=== PATIENT | male | born 1965 | race Caucasian/White ===

== ENCOUNTER 2017-04-15 17:21 | Emergency (ER) | payer SELFPAY ==
[2017-04-15 17:23] VITALS: BP 129/81; PULSE 84; RESP 12; TEMP 97.7; O2SAT 99
[2017-04-15] MEDS ORDERED: AMIO0.1T PO (18:32)
[2017-04-15] MEDS ORDERED: HYDR12.57 PO (18:32)
[2017-04-15] MEDS ORDERED: LISI40TA PO (18:32)
[2017-04-15] MEDS ORDERED: METF1000 PO (18:37)
[2017-04-15] MEDS ORDERED: METO25TA3 PO (18:37)
[2017-04-15] MEDS ORDERED: CLON0.5T PO (18:37)
[2017-04-15] MEDS ORDERED: TRAM50TA PO (18:37)
[2017-04-15] MEDS ORDERED: APIX2.5T PO (18:37)
[2017-04-15] MEDS ORDERED: GABA100C4 PO (18:37)
[2017-04-15] MEDS ORDERED: MELO7.5T27 PO (18:38)
[2017-04-15] MEDS ORDERED: BACT800T5 PO (19:15)
--- NOTE | 2017-04-15 19:19 | PD ---
HPI Chief Complaint: Medical Clearance Time Seen by Provider: 19:15 Travel History International Travel<30 days: No Contact w/Intl Traveler<30days: No Traveled to known affect area: No History of Present Illness HPI 51-year-old white male presents to emergency department with complains of a persistent infection in his right lower calf. He states that 2 weeks ago was seen by his doctor and put on 10 days and clindamycin. His mouth is medicines now for the past 4 days. He is noticing increasing redness. He is concerned because he has diabetes and he'll slowly. He had a subjective fever and chills earlier today. Positive headache. No ear pain, sore throat, cough, congestion , nausea, vomiting, bowel pain or urinary symptoms. History of skin infections in the past. [facility] Past Medical History Narrative Medical A. fib, hypertension, diabetes Atrial Fibrillation: Yes Diabetes: Yes Patient Takes Glucophage: Yes Hypertension: Yes Tetanus Vaccination: < 5 Years ?: Not Social History Alcohol Use: No Tobacco Use: No Substance Use: No Allergies-Medications (Allergen,Severity, Reaction): Coded Allergies: No Known Allergies (Unverified , 04/15/17) Reported Meds & Prescriptions Reported Meds & Active Scripts Active Bactrim DS (Sulfamethoxazole-Trimethoprim) 800-160 Mg Tab 1 Tab PO BID Reported Meloxicam 7.5 Mg Tab Unknown Dose PO DAILY Eliquis (Apixaban) 2.5 Mg Tab Unknown Dose PO BID Clonazepam 0.5 Mg Tab Unknown Dose PO DAILY Metoprolol Tartrate 25 Mg Tab Unknown Dose PO DAILY Tramadol (Tramadol HCl) 50 Mg Tab Unknown Dose PO BID PRN Metformin (Metformin HCl) 1,000 Mg Tab Unknown Dose PO DAILY Gabapentin 100 Mg Cap Unknown Dose PO BID Amiodarone (Amiodarone HCl) 100 Mg Tab Unknown Dose PO DAILY Hydrochlorothiazide 12.5 Mg Cap Unknown Dose PO DAILY Lisinopril 40 Mg Tab 40 Mg PO DAILY Review of Systems Except as stated in HPI: all other systems reviewed are Neg Physical Exam Narrative GENERAL: Well-developed, well-nourished in no acute distress. Nontoxic appearing. HEAD: Normocephalic, atraumatic. EYES: Pupils equal round and reactive. Extraocular motions intact. No scleral icterus. No injection or drainage. ENT: TMs clear without erythema. The external auditory canals clear. Nose: clear . Posterior pharynx is pink and moist. No tonsillar edema or exudate. Uvula midline. Airway patent. NECK: Trachea midline.Supple, nontender, moves head freely. No central bony tenderness or spasm. CARDIOVASCULAR: Irregular with a controlled rate without murmurs, gallops, or rubs. RESPIRATORY: Clear to auscultation. Breath sounds equal bilaterally. No wheezes , rales, or rhonchi. GASTROINTESTINAL: Abdomen soft, non-tender, nondistended. No hepato-splenomegaly , or palpable masses. No guarding. EXTREMITIES: No clubbing, cyanosis, or edema. No joint tenderness, effusion, or edema noted. There is a 1.5 x 1.5 cm area of erythema to the right lower leg. No fluctuance or pointing. Some small central skin breakdown. BACK: Nontender without deformity or crepitance. No flank tenderness. Data Data Last Documented VS Vital Signs Date Time Temp Pulse Resp B/P (MAP) Pulse Ox O2 Delivery O2 Flow Rate FiO2 04/15/17 17:23 97.7 84 12 129/81 (97) 99 Orders Orders Sulfamet-Trimeth Ds 800-160 Mg (Bactrim (04/15/17 19:30) Ed Discharge Order (04/15/17 19:16) MDM Medical Decision Making Medical Screen Exam Complete: Yes Emergency Medical Condition: Yes Medical Record Reviewed: Yes Differential Diagnosis MDM: High Differential diagnoses: Abscess, folliculitis, cellulitis, lymphangitis, abrasion, contact dermatitis Narrative Course Patient is given Bactrim DS. This is superficial cellulitis Diagnosis Primary Impression: sUPERFICIAL CELLULITIS Patient Instructions: General Instructions Additional Instructions: Rest. Elevation. keep clean and dry. Warm compresses Daily wound care with soap, water and Neosporin. Bactrim DS Follow-up with a primary care doctor in one week. Return to the ER for any problems. Med/Other Pt SpecificInfo: Prescription(s) given Scripts Sulfamethoxazole-Trimethoprim (Bactrim DS) 800-160 Mg Tab 1 TAB PO BID for Infection, #14 TAB 0 Refills Prov: Rachael Escobedo DO 04/15/17 Disposition: 01 DISCHARGE HOME Condition: Stable Fady Riley Apr 15, 2017 19:19
[2017-04-15] MEDS ORDERED: SULFAMETHOXAZOLE-TRIMETHOPRIM DS 800-160 MG TAB PO ONE (19:30)
== END 2017-04-15 19:37 | disposition home or self-care (01) ==
LOC: EDSEX 17:21 → NEPK 17:21
DX: L03.90 Cellulitis, unspecified (principal); E11.9 Type 2 diabetes mellitus without complications; I10 Essential (primary) hypertension; I48.91 Unspecified atrial fibrillation; Z79.01 Long term (current) use of anticoagulants; Z79.84 Long term (current) use of oral hypoglycemic drugs
CPT/HCPCS: 99283

== ENCOUNTER 2017-06-19 15:49 | Emergency (ER) | payer SELFPAY ==
[~2017-06-19] VITALS: Ht 188 cm; Wt 114.0 kg
[~2017-06-19 15:49] MED LIST: AMIO0.1T PO; APIX2.5T PO; BACT800T5 PO; CLON0.5T PO; GABA100C4 PO; HYDR12.57 PO; LISI40TA PO; MELO7.5T27 PO; METF1000 PO; METO25TA3 PO; TRAM50TA PO
[2017-06-19 16:01] VITALS: BP 155/75; PULSE 72; RESP 18; TEMP 97.8; O2SAT 98
--- NOTE | 2017-06-19 17:50 | PD ---
HPI Chief Complaint: Skin Problem Time Seen by Provider: 17:17 Travel History International Travel<30 days: No Contact w/Intl Traveler<30days: No Traveled to known affect area: No History of Present Illness HPI 52-year-old male presents to the emergency room for evaluation of right leg redness, swelling, and pain. States 2 weeks ago, he hit his leg against the wall and had a large bruise and bump that has decreased over time. However, he states the same area became red with increased warmth over the past couple days. He denies objective fevers but reports chills and sweats. He has history of diabetic neuropathy and is on Eliquis. PFSH Past Medical History Atrial Fibrillation: Yes Cancer: Yes (TESTICULAR) Diabetes: Yes Patient Takes Glucophage: Yes Hypertension: Yes Influenza Vaccination: No Past Surgical History Other Surgery: Yes (1 TESTICLE REMOVED) Social History Alcohol Use: No Tobacco Use: No Substance Use: No Allergies-Medications (Allergen,Severity, Reaction): Coded Allergies: No Known Allergies (Unverified , 06/19/17) Reported Meds & Prescriptions Reported Meds & Active Scripts Active Clindamycin (Clindamycin HCl) 300 Mg Cap 300 Mg PO Q8HR 10 Days Bactrim DS (Sulfamethoxazole-Trimethoprim) 800-160 Mg Tab 1 Tab PO BID Reported Meloxicam 7.5 Mg Tab Unknown Dose PO DAILY Eliquis (Apixaban) 2.5 Mg Tab Unknown Dose PO BID Clonazepam 0.5 Mg Tab Unknown Dose PO DAILY Metoprolol Tartrate 25 Mg Tab Unknown Dose PO DAILY Tramadol (Tramadol HCl) 50 Mg Tab Unknown Dose PO BID PRN Metformin (Metformin HCl) 1,000 Mg Tab Unknown Dose PO DAILY Gabapentin 100 Mg Cap Unknown Dose PO BID Amiodarone (Amiodarone HCl) 100 Mg Tab Unknown Dose PO DAILY Hydrochlorothiazide 12.5 Mg Cap Unknown Dose PO DAILY Lisinopril 40 Mg Tab 40 Mg PO DAILY Review of Systems Except as stated in HPI: all other systems reviewed are Neg Physical Exam Narrative GENERAL: Well-nourished, well-developed male in no acute distress. Afebrile. Ambulatory. SKIN: Focused skin assessment warm/dry. There is a 5 cm area of erythema with a mild fluctuant area underneath. No lymphangitis. HEAD: Normocephalic. EYES: No scleral icterus. No injection or drainage. NECK: Supple, trachea midline. No JVD or lymphadenopathy. CARDIOVASCULAR: Regular rate and rhythm without murmurs, gallops, or rubs. RESPIRATORY: Breath sounds equal bilaterally. No accessory muscle use. MUSCULOSKELETAL: No cyanosis, or edema. Data Data Last Documented VS Vital Signs Date Time Temp Pulse Resp B/P (MAP) Pulse Ox O2 Delivery O2 Flow Rate FiO2 06/19/17 16:01 97.8 72 18 155/75 (101) 98 Orders Orders Complete Blood Count With Diff (06/19/17 17:26) Comprehensive Metabolic Panel (06/19/17 17:26) Acetaminophen (Tylenol) (06/19/17 18:00) Ed Discharge Order (06/19/17 19:08) Labs Laboratory Tests Test 06/19/17 17:45 White Blood Count 9.0 TH/MM3 Red Blood Count 5.38 MIL/MM3 Hemoglobin 16.6 GM/DL Hematocrit 47.1 % Mean Corpuscular Volume 87.7 FL Mean Corpuscular Hemoglobin 30.8 PG Mean Corpuscular Hemoglobin Concent 35.1 % Red Cell Distribution Width 13.8 % Platelet Count 277 TH/MM3 Mean Platelet Volume 8.1 FL Neutrophils (%) (Auto) 75.8 % Lymphocytes (%) (Auto) 15.3 % Monocytes (%) (Auto) 7.4 % Eosinophils (%) (Auto) 1.0 % Basophils (%) (Auto) 0.5 % Neutrophils # (Auto) 6.8 TH/MM3 Lymphocytes # (Auto) 1.4 TH/MM3 Monocytes # (Auto) 0.7 TH/MM3 Eosinophils # (Auto) 0.1 TH/MM3 Basophils # (Auto) 0.0 TH/MM3 CBC Comment DIFF FINAL Differential Comment Blood Urea Nitrogen 14 MG/DL Creatinine 1.16 MG/DL Random Glucose 131 MG/DL Total Protein 8.1 GM/DL Albumin 4.1 GM/DL Calcium Level 9.0 MG/DL Alkaline Phosphatase 55 U/L Aspartate Amino Transf (AST/SGOT) 43 U/L Alanine Aminotransferase (ALT/SGPT) 24 U/L Total Bilirubin 0.6 MG/DL Sodium Level 138 MEQ/L Potassium Level 5.0 MEQ/L Chloride Level 101 MEQ/L Carbon Dioxide Level 30.3 MEQ/L Anion Gap 7 MEQ/L Estimat Glomerular Filtration Rate 66 ML/MIN MDM Medical Decision Making Medical Screen Exam Complete: Yes Emergency Medical Condition: Yes Medical Record Reviewed: Yes Differential Diagnosis Cellulitis, abscess, superficial thrombophlebitis, hematoma Narrative Course 52 year old male with a history of well-controlled diabetes presents to the emergency room for evaluation of cellulitis to the right lower lisa that started a few days ago. Patient states it started off as a large bruise after he hit his leg against a wall. The bruit has decreased but the redness and pain worsened a few days ago. He denies fever but reports some chills. Patient is afebrile and well-appearing in the emergency room. Vital signs stable. Right lower extremity is neurovascularly intact with 2+ dorsalis pedis pulse. Full range of motion. No edema. There is a 6 cm diameter area of erythema on the lower lisa without lymphangitis. CBC and CMP are completely unremarkable. Patient is stable for outpatient trial of antibiotics. He was discharged with prescription for clindamycin and told to follow-up with primary care physician or return for worsening symptoms. He understands and agrees to plan. Diagnosis Primary Impression: Cellulitis of right leg Referrals: Primary Care Physician Additional Instructions: Rest and drink plenty of fluids. Take clindamycin as directed, until gone. Follow up with a primary care physician. Return to emergency room for worsening symptoms, as discussed. Scripts Clindamycin (Clindamycin) 300 Mg Cap 300 MG PO Q8HR for Infection for 10 Days, CAP 0 Refills Prov: Brian Mcmillan MD 06/19/17 Disposition: 01 DISCHARGE HOME Condition: Stable Siobhan Lindsay Jun 19, 2017 17:50
[2017-06-19] MEDS ORDERED: ACETAMINOPHEN 325 MG TAB PO ONE (18:00)
[2017-06-19 18:01] LABS: AUTOMATED NEUTROPHIL # 6.8 TH/MM3 (1.8-7.7); BASOPHIL % 0.5 % (0.0-2.0); EOSINOPHIL # 0.1 TH/MM3 (0-0.4); HEMATOCRIT 47.1 % (39.0-51.0); HEMOGLOBIN 16.6 GM/DL (13.0-17.0); LYMPH % 15.3 % (9.0-44.0); LYMPHOCYTE # 1.4 TH/MM3 (1.0-4.8); MEAN CELL VOLUME 87.7 FL (80.0-100.0); MEAN CORPUSCULAR HEMOGLOBIN 30.8 PG (27.0-34.0); MEAN CORPUSCULAR HGB CONC 35.1 % (32.0-36.0); MEAN PLATELET VOLUME 8.1 FL (7.0-11.0); MONO % 7.4 % (0.0-8.0); MONOCYTE # 0.7 TH/MM3 (0-0.9); NEUT % 75.8 % (16.0-70.0); PLATELET COUNT 277 TH/MM3 (150-450); RED BLOOD COUNT 5.38 MIL/MM3 (4.50-5.90); RED CELL DISTRIBUTION WIDTH 13.8 % (11.6-17.2)
[2017-06-19 18:18] LABS: ALBUMIN 4.1 GM/DL (3.4-5.0); BICARBONATE 30.3 MEQ/L (21.0-32.0); BLOOD UREA NITROGEN 14 MG/DL (7-18); CHLORIDE 101 MEQ/L (98-107); CREATININE 1.16 MG/DL (0.60-1.30); GLOMERULAR FILTRATION RATE 66 ML/MIN (>89); GLUCOSE,RANDOM 131 MG/DL (74-106); SODIUM (NA) 138 MEQ/L (136-145)
[2017-06-19 18:19] LABS: ALKALINE PHOSPHATASE 55 U/L (45-117); ALT (GPT) 24 U/L (12-78); TOTAL BILIRUBIN ADULT 0.6 MG/DL (0.2-1.0); TOTAL PROTEIN 8.1 GM/DL (6.4-8.2)
[2017-06-19 18:30] LABS: AST (GOT) 43 U/L (15-37)
[2017-06-19] MEDS ORDERED: CLIN300C5 PO (19:06)
== END 2017-06-19 19:22 | disposition home or self-care (01) ==
LOC: NEPD 15:49
DX: L03.115 Cellulitis of right lower limb (principal); I48.91 Unspecified atrial fibrillation; E11.40 Type 2 diabetes mellitus with diabetic neuropathy, unspecified; I10 Essential (primary) hypertension; Z85.47 Personal history of malignant neoplasm of testis
CPT/HCPCS: 80053; 85025; 99283

== ENCOUNTER 2017-10-13 12:23 | Observation (INO) ==
--- NOTE | 2017-10-13 12:58 | ED ---
HPI General Chief complaint: Neuro Symptoms/Deficit Stated complaint: Left Arm Numbness Time Seen by Provider: 10/13/17 12:27 History of Present Illness HPI narrative: Patient is a 52-year-old male presents emergency department for evaluation of left-sided weakness he awoke up with approximately 06 30 this morning. Patient has a history of diabetes chews tobacco is on Eliquis for history of atrial fibrillation. He states that he was unable to bank messenger things this morning when he woke up and thought that it was getting a little bit better as the day went on but though his symptoms have persisted he decided to come in and be seen. states he also has been feeling some fluttering in his chest like his atrial fibrillation to come back. No chest pain no nausea no vomiting no headache. Onset (ago): unknown Severity: moderate Associated symptoms: denies other symptoms Treatments prior to arrival: none Related Data Home Medications Medication Instructions Recorded Confirmed Eliquis BID 10/13/17 amiodarone DAILY 10/13/17 gabapentin 1,500 mg PO BID 10/13/17 10/13/17 hydrochlorothiazide 1 tab DAILY 10/13/17 10/13/17 lisinopril DAILY 10/13/17 metformin 500 mg PO DAILY 10/13/17 10/13/17 tramadol 100 mg BID 10/13/17 10/13/17 Allergies Allergy/AdvReac Type Severity Reaction Status Date / Time No Known Allergies Allergy Verified 10/13/17 12:39 Review of Systems Except as stated in HPI: all other systems reviewed are negative PMFSH Medical History Medical History Atrial fibrillation (Acute) Diabetes mellitus (Acute) Hernia (Acute) Hypertension (Acute) Knee pain (Acute) Neuropathy (Acute) Testicular cancer (Acute) Surgical History Surgical History History of hernia repair (Acute) Social History Social History Substance History: No History of Abuse Second Hand Smoke Exposure: No Smoking Status: Never smoker How Often Do You Have a Drink Containing Alcohol: Never Recent Travel in [place] within the Last 8 Weeks: No Recent Out of Country Travel within the Last 8 Weeks: No Exam Narrative Exam Narrative: GENERAL: Well-developed well-nourished overweight male in no obvious distress. SKIN: Focused skin assessment warm/dry. HEAD: Atraumatic. Normocephalic. EYES: Pupils equal and round. No scleral icterus. No injection or drainage. ENT: No nasal bleeding or discharge. Mucous membranes pink and moist. NECK: Trachea midline. No JVD. CARDIOVASCULAR: Regular rate and rhythm. No murmur appreciated. RESPIRATORY: No accessory muscle use. Clear to auscultation. Breath sounds equal bilaterally. GASTROINTESTINAL: Abdomen soft, non-tender, nondistended. Hepatic and splenic margins not palpable. MUSCULOSKELETAL: No obvious deformities. No clubbing. No cyanosis. No edema. NEUROLOGICAL: Awake and alert. Some obvious facial asymmetry and appears to be some left sided facial droop. When smiling the patient is able to smile on both side but there is loss of nasolabial fold on the left at rest. Is 4 out of 5 bank messenger strength on the left, 3 out of 5 flexion at the elbow, no drift in any extremity. Left lower extremity is 5 out of 5 strength, right side extremities are 5 out of 5. Other than the facial asymmetry above cranial nerves II through and VIII through XII appear to be intact. PSYCHIATRIC: Appropriate mood and affect; insight and judgment normal. Course Initial Documented Vital Signs Temperature 98.7 F 10/13/17 12:39 Pulse Rate 76 10/13/17 12:39 Respiratory Rate 18 10/13/17 12:39 Blood Pressure 170/89 H 10/13/17 12:39 Pulse Oximetry 98 10/13/17 12:39 Last Documented Vital Signs Temperature 98.0 F 10/13/17 18:21 Pulse Rate 66 10/13/17 18:21 Respiratory Rate 17 10/13/17 18:21 Blood Pressure 157/84 H 10/13/17 18:21 Pulse Oximetry 97 10/13/17 18:21 NIH Stroke Scale NIH Stroke Scale Level of Consciousness: 0-Alert Orientation Questions: 0-Answers both correct Responds to Commands: 0-Both tasks correct Gaze Eye Movement: 0-Horizontal movement WNL Visual [place]: 0-No visual field defect Facial Movement: 0-Normal Motor Functions Arm LEFT: 1-Drift before 10 seconds Motor Functions Arm RIGHT: 0-No drift Motor Functions Leg LEFT: 0-No drift Motor Functions Leg RIGHT: 0-No drift Limb Ataxia: 0-No ataxia Sensory Loss: 0-No sensory loss Best Language: 0-Normal Articulation: 0-Normal Extinction or Inattention Sensory: 0-Absent Total: 1 Medical Decision Making MDM Narrative Medical decision making narrative: Patient roomed in the ER. For me he has no drift, has weakness in LUE and facial droop. His total NIH is 2. Patient has no timeline and therefore not stroke alert (woke up with these symptoms). Slowly resolving in ER but on reassessment after negative CT and CT head, still has minimal weakness. This is an acute stroke. Recommended for admission and he is agreeable. D/W Dr. Dasilva who is agreeable for admission. Differential Diagnosis Differential Diagnosis: Hemorrhagic stroke, ischemic stroke, anticoagulated, DKA , diabetes. Lab Data Result diagrams: 10/13/17 18:00 10/13/17 12:40 Lab Results 10/13/17 10/13/17 10/13/17 Range/Units 12:27 12:40 12:40 WBC (4.0-11.0) th/mm3 RBC (4.50-5.90) mil/mm3 Hgb (13.0-17.0) gm/dL Hct (39.0-51.0) % MCV (80.0-100.0) fL MCH (27.0-34.0) pg MCHC (32.0-36.0) % RDW (11.6-17.2) % Plt Count (150-450) th/mm3 MPV (7.0-11.0) fL PT 10.5 (9.8-11.6) sec INR 1.0 Ratio APTT 26.7 (24.3-30.1) sec Sodium 139 (136-145) meq/L Potassium 3.6 (3.5-5.1) meq/L Chloride 103 (98-107) meq/L Carbon Dioxide 27.2 (21.0-32.0) meq/L Anion Gap 9 (5-15) meq/L BUN 16 (7-18) mg/dL Creatinine 1.30 (0.60-1.30) mg/dL Estimated GFR 58 L (>89) mL/min POC Glucose 137 H (68-110) mg/dl Random Glucose 115 H (74-106) mg/dL Calcium 8.7 (8.5-10.1) mg/dL Total Bilirubin 0.5 (0.2-1.0) mg/dL AST 24 (15-37) U/L ALT 28 (12-78) U/L Alkaline Phosphatase 57 (45-117) U/L Total Creatine Kinase (39-308) U/L CK-MB (CK-2) (0.5-3.6) ng/mL Troponin I (0.02-0.05) ng/mL Total Protein 7.9 (6.4-8.2) g/dL Albumin 4.2 (3.4-5.0) g/dL Urine Color (Yellw/Straw) Urine Clarity (Clear) Urine pH (5.0-8.5) Ur Specific [place] (1.002-1.035) Urine Protein (Neg-Trace) mg/dL Urine Glucose (UA) (Negative) mg/dL Urine Ketones (Negative) mg/dL Urine Occult Blood (Negative) Urine Nitrate (Negative) Urine Bilirubin (Negative) Urine Urobilinogen (Less than 2) mg/dL Ur Leukocyte Esterase (Negative) Urine WBC (0-5) /hpf Hyaline Casts (0-3) /lpf Micro UA Comment Urine Culture Comments Blood Type Blood Type Recheck Antibody Screen 10/13/17 10/13/17 10/13/17 Range/Units 12:40 12:40 15:00 WBC (4.0-11.0) th/mm3 RBC (4.50-5.90) mil/mm3 Hgb (13.0-17.0) gm/dL Hct (39.0-51.0) % MCV (80.0-100.0) fL MCH (27.0-34.0) pg MCHC (32.0-36.0) % RDW (11.6-17.2) % Plt Count (150-450) th/mm3 MPV (7.0-11.0) fL PT (9.8-11.6) sec INR Ratio APTT (24.3-30.1) sec Sodium (136-145) meq/L Potassium (3.5-5.1) meq/L Chloride (98-107) meq/L Carbon Dioxide (21.0-32.0) meq/L Anion Gap (5-15) meq/L BUN (7-18) mg/dL Creatinine (0.60-1.30) mg/dL Estimated GFR (>89) mL/min POC Glucose (68-110) mg/dl Random Glucose (74-106) mg/dL Calcium (8.5-10.1) mg/dL Total Bilirubin (0.2-1.0) mg/dL AST (15-37) U/L ALT (12-78) U/L Alkaline Phosphatase (45-117) U/L Total Creatine Kinase 208 (39-308) U/L CK-MB (CK-2) 1.9 (0.5-3.6) ng/mL Troponin I Less than 0.02 L (0.02-0.05) ng/mL Total Protein (6.4-8.2) g/dL Albumin (3.4-5.0) g/dL Urine Color Yellow (Yellw/Straw) Urine Clarity Clear (Clear) Urine pH 5.5 (5.0-8.5) Ur Specific [place] 1.025 (1.002-1.035) Urine Protein Negative (Neg-Trace) mg/dL Urine Glucose (UA) 250 H (Negative) mg/dL Urine Ketones Negative (Negative) mg/dL Urine Occult Blood Negative (Negative) Urine Nitrate Negative (Negative) Urine Bilirubin Negative (Negative) Urine Urobilinogen 0.2 (Less than 2) mg/dL Ur Leukocyte Esterase Negative (Negative) Urine WBC 0-5 (0-5) /hpf Hyaline Casts 4-10 H (0-3) /lpf Micro UA Comment Culture not ind Urine Culture Comments Culture not ind Blood Type O Negative Blood Type Recheck Required Antibody Screen Negative 10/13/17 Range/Units 18:00 WBC 8.0 (4.0-11.0) th/mm3 RBC 5.32 (4.50-5.90) mil/mm3 Hgb 15.9 (13.0-17.0) gm/dL Hct 47.8 (39.0-51.0) % MCV 89.8 (80.0-100.0) fL MCH 30.0 (27.0-34.0) pg MCHC 33.3 (32.0-36.0) % RDW 13.1 (11.6-17.2) % Plt Count 281 (150-450) th/mm3 MPV 7.6 (7.0-11.0) fL PT (9.8-11.6) sec INR Ratio APTT (24.3-30.1) sec Sodium (136-145) meq/L Potassium (3.5-5.1) meq/L Chloride (98-107) meq/L Carbon Dioxide (21.0-32.0) meq/L Anion Gap (5-15) meq/L BUN (7-18) mg/dL Creatinine (0.60-1.30) mg/dL Estimated GFR (>89) mL/min POC Glucose (68-110) mg/dl Random Glucose (74-106) mg/dL Calcium (8.5-10.1) mg/dL Total Bilirubin (0.2-1.0) mg/dL AST (15-37) U/L ALT (12-78) U/L Alkaline Phosphatase (45-117) U/L Total Creatine Kinase (39-308) U/L CK-MB (CK-2) (0.5-3.6) ng/mL Troponin I (0.02-0.05) ng/mL Total Protein (6.4-8.2) g/dL Albumin (3.4-5.0) g/dL Urine Color (Yellw/Straw) Urine Clarity (Clear) Urine pH (5.0-8.5) Ur Specific [place] (1.002-1.035) Urine Protein (Neg-Trace) mg/dL Urine Glucose (UA) (Negative) mg/dL Urine Ketones (Negative) mg/dL Urine Occult Blood (Negative) Urine Nitrate (Negative) Urine Bilirubin (Negative) Urine Urobilinogen (Less than 2) mg/dL Ur Leukocyte Esterase (Negative) Urine WBC (0-5) /hpf Hyaline Casts (0-3) /lpf Micro UA Comment Urine Culture Comments Blood Type Blood Type Recheck Antibody Screen Imaging Data Radiologist's impression: ITS Impressions Head CT 10/13/17 12:51 CONCLUSION: 1. Negative for an acute process. Head CTA 10/13/17 12:51 CONCLUSION: 1. Negative for major branch vessel occlusion. Neck CTA 10/13/17 12:51 CONCLUSION: 1. Unremarkable exam. Chest X-Ray 10/13/17 12:52 CONCLUSION: Mild prominence cardiac silhouette otherwise negative Discharge Plan Discharge Disposition Patient Disposition: 30 Still Patient Physicians Team ED Provider: Panfilo Jarrett Primary Care Provider: Primary Care Margret Huggins Attending Provider: Scott Dasilva Other Providers: Mini De La Cruz Discharge Interventions Interventions: ED Discharge Assessment Last Done: 10/13/17 17:04 Status ED Status: Left Department Discharge Information Discharge Date/Time: 10/13/17 17:11
[2017-10-13] MEDS ORDERED: Sod Chloride 0.9% Inj 1,000 ML IV.CONT SCH (13:00)
--- NOTE | 2017-10-13 13:15 | XR ---
EXAM DATE: 10/13/2017 1:11 PM EDT AGE/SEX: 52 years / Male INDICATIONS: Left arm numbness, loss of strength, & heart palpations. CLINICAL DATA: This is the patient's initial encounter. Patient reports that signs and symptoms have been present for 1 day and indicates a pain score of 0/10. MEDICAL/SURGICAL HISTORY: Diabetes. Carcinoma, testicular. Hypertension. A-fib. Hernia. Neur opathy. . Hernia repair. COMPARISON: No prior exams available for comparison. FINDINGS: A single AP view of the chest demonstrates the lungs to be symmetrically aerated without evidence of mass, infiltrate or effusion. Mild prominence cardiac silhouette. Osseous structures are intact. CONCLUSION: Mild prominence cardiac silhouette otherwise negative Electronically signed by: Ford Amezcua MD 10/13/2017 1:14 PM EDT
[2017-10-13 13:35] LABS: Activated Partial Thrombo Time 26.7 sec (24.3-30.1); Prothrombin Time 10.5 sec (9.8-11.6)
[2017-10-13 13:38] LABS: Chloride 103 meq/L (98-107); Creatine Kinase 208 U/L (39-308); Potassium 3.6 meq/L (3.5-5.1); Sodium 139 meq/L (136-145)
[2017-10-13 13:41] LABS: Calcium 8.7 mg/dL (8.5-10.1)
[2017-10-13 13:42] LABS: Albumin 4.2 g/dL (3.4-5.0); Anion Gap 9 meq/L (5-15); Blood Urea Nitrogen 16 mg/dL (7-18); Carbon Dioxide 27.2 meq/L (21.0-32.0); Glucose,Random 115 mg/dL (74-106)
[2017-10-13 13:45] LABS: Alanine Aminotransferase 28 U/L (12-78); Aspartate Aminotransferase 24 U/L (15-37); Glomerular Filtration Rate 58 mL/min (>89)
[2017-10-13 13:46] LABS: Total Protein 7.9 g/dL (6.4-8.2)
[2017-10-13 13:48] LABS: Alkaline Phosphatase 57 U/L (45-117)
[2017-10-13 13:50] LABS: Creatine Kinase MB 1.9 ng/mL (0.5-3.6)
--- NOTE | 2017-10-13 14:45 | CT ---
EXAM DATE: 10/13/2017 2:43 PM EDT AGE/SEX: 52 years / Male INDICATIONS: Left upper extremity numbness. CLINICAL DATA: This is the patient's initial encounter. Patient reports that signs and symptoms have been present for 1 day and indicates a pain score of 0/10. MEDICAL/SURGICAL HISTORY: Diabetes. Hypertension. Carcinoma, testicular. . Hernia repair. RADIATION DOSE: 57.24 CTDI (mGy) COMPARISON: No prior exams available for comparison. TECHNIQUE: CT of the head without contrast. Using automated exposure control and adjustment of the mA and/or kV according to patient size, radiation dose was kept as low as reasonably achievable to ob tain optimal diagnostic quality images. DICOM format image data is available electronically for revi ew and comparison. FINDINGS: Cerebrum: The ventricles are normal for age. No evidence of midline shift, mass lesion, hemorrhage or acute infarction. No extraaxial fluid collections are seen. Posterior Fossa: The cerebellum and brainstem are intact. The 4th ventricle is midline. The cerebe llopontine angle is unremarkable. Extracranial: The visualized portion of the orbits is intact. Skull: The calvaria is intact. No evidence of skull fracture. CONCLUSION: 1. Negative for an acute process. Electronically signed by: Ford Amezcua MD 10/13/2017 2:44 PM EDT
--- NOTE | 2017-10-13 15:10 | CT ---
EXAM DATE: 10/13/2017 3:07 PM EDT AGE/SEX: 52 years / Male INDICATIONS: Left upper extremity numbness. CLINICAL DATA: This is the patient's initial encounter. Patient reports that signs and symptoms have been present for 1 day and indicates a pain score of 0/10. MEDICAL/SURGICAL HISTORY: Diabetes. Hypertension. Carcinoma, testicular. . Hernia repair. RADIATION DOSE: 42.30 CTDI (mGy) ; Combined studies COMPARISON: [facility], CT HEAD W/O CONTRAST, 10/13/2017. . TECHNIQUE: Volumetric scanning was performed using a multi-row detector CT scanner during bolus infu nicol of 95 ml Omnipaque 350 (iohexol) nonionic water-soluble contrast as a cumulative dose for multi ple exams. The data was post processed with a variety of visualization algorithms including full vo lume maximum intensity projection, multi-planar sliding thin slab reformation, curved planar reformat ion, and surface rendering techniques. Using automated exposure control and adjustment of the mA and /or kV according to patient size, radiation dose was kept as low as reasonably achievable to obtain o ptimal diagnostic quality images. DICOM format image data is available electronically for review and comparison. FINDINGS: There is excellent visualization of the major intracranial arteries out to the second-order branch ve ssels. There is no evidence for aneurysm, vessel truncation or stenosis, and no evidence for vascula r malformation. CONCLUSION: 1. Negative for major branch vessel occlusion. Electronically signed by: Ford Amezcau MD 10/13/2017 3:09 PM EDT
[2017-10-13 15:23] LABS: Bilirubin,Urine Negative (Negative); Clarity,Urine Clear (Clear); Color,Urine Yellow (Yellw/Straw); Glucose,Urine (UA) 250 mg/dL (Negative); Leukocyte Esterase,Urine Negative (Negative); Nitrite,Urine Negative (Negative); PH,Urine 5.5 (5.0-8.5); Specific Gravity,Urine 1.025 (1.002-1.035); Urobilinogen,Urine 0.2 mg/dL (Less than 2)
--- NOTE | 2017-10-13 15:25 | CT ---
EXAM DATE: 10/13/2017 3:17 PM EDT AGE/SEX: 52 years / Male INDICATIONS: Left upper extremity numbness. CLINICAL DATA: This is the patient's initial encounter. Patient reports that signs and symptoms have been present for 1 day and indicates a pain score of 0/10. MEDICAL/SURGICAL HISTORY: Carcinoma, testicular. Diabetes. Hypertension. . Hernia repair. RADIATION DOSE: 42.30 CTDI (mGy) ; Combined studies COMPARISON: No prior exams available for comparison. TECHNIQUE: Volumetric scanning was performed using a multirow detector CT scanner during bolus infus ion of 95 ml Omnipaque 350 (iohexol) nonionic water-soluble contrast as a cumulative dose for multip le exams. The data was postprocessed with a variety of visualization algorithms including full-volu me maximum intensity projection, multiplanar sliding thin-slab reformation, curved-planar reformation , and surface-rendering techniques. Using automated exposure control and adjustment of the mA and/or kV according to patient size, radiation dose was kept as low as reasonably achievable to obtain opti mal diagnostic quality images. DICOM format image data is available electronically for review and co mparison. FINDINGS: Aortic Arch: There is variant anatomy at the arch. 4 vessels are seen arising from the arch. The lef t vertebral artery arises directly off the aortic arch between the left common carotid and left subcl radha arteries.. No evidence of ostial narrowing Right Carotid: The common carotid artery is intact. The carotid bulb has a normal configuration wit hout ulceration or narrowing. The internal carotid artery lumen is smooth without stenosis. The ext ernal carotid artery is intact. Left Carotid: The common carotid artery is intact. The carotid bulb has a normal configuration with out ulceration or narrowing. The internal carotid artery lumen is smooth without stenosis. The exte rnal carotid artery is intact. Vertebrals: The vertebral arteries have a symmetric diameter. No stenotic lesions are seen. Elevated flow velocities and ICA/CCA ratios have been found to correlate with increased degrees of ve ssel stenosis, calculated as percentage of diameter relative to a normal segment of distal ICA/CCA. CONCLUSION: 1. Unremarkable exam. Electronically signed by: Jorden Roldan MD 10/13/2017 3:24 PM EDT
[2017-10-13 15:29] LABS: WBC,Urine 0-5 /hpf (0-5)
--- NOTE | 2017-10-13 16:11 | P.HPIM ---
History of Present Illness Primary Care Physician: No Primary Care Physician Chief Complaint: left arm weakness History of Present Illness: patient is a 52 y/o male with history of hypertension, diabetes mellitus and a- fib. who presented to ER with left arm weakness. he says that he was at his usual state of health till this morning when he started to have left arm weakness. he says that his left arm felt numb.this lasted the whole day. he had mild headache but with no dizziness, slurred speech, chest pain or sob. - Diagnosis (1) CVA (cerebral vascular accident) (2) Hypertension (3) A-fib (4) Diabetes mellitus Inpatient Certification: I certify that the inpatient services were ordered in accordance with Medicare regulations governing the order. This includes certification that hospital inpatient services are reasonable and necessary and in the case of services not specified as inpatient-only under 42 CFR 419.22(n), that they are appropriately provided as inpatient services in accordance to with the 2-midnight benchmark under 43 CFR 412.3(e) Review of Systems All other systems reviewed negative except as stated in HPI PMFSH - History History Provided By: Patient - Medical History Medical History: Medical History (Last Updated 10/13/17 @ 12:47 by Mary Reilly) Atrial fibrillation Diabetes mellitus Hernia Hypertension Knee pain Neuropathy Testicular cancer - Surgical History Surgical History: Surgical History (Last Updated 10/13/17 @ 12:47 by Mary Reilly) History of hernia repair - Tobacco History Second Hand Smoke Exposure: No Tobacco Use In Past 30 Days: No Smoking Status: Never smoker - Alcohol History How Often Do You Have a Drink Containing Alcohol: Never - Substance Use History Substance History: No History of Abuse - Travel History Recent Travel in the [place] Within the Last 8 Weeks: No Recent Travel Out of the Country Within the Last 8 Weeks: No - Immunization History Tetanus Immunization: Unsure Hx Influenza Vaccine This Season: No Medications and Allergies Active Medications: Active Medications Sodium Chloride (Ns Inj) 1,000 mls @ 70 mls/hr IV.CONT .[id number] JASON Stop: 10/14/17 03:17 Last Admin: 10/13/17 13:21 Dose: 70 mls/hr Sodium Chloride (Ns Flush) 2 ml IV.FLUSH PRN PRN PRN Reason: FLUSH AFTER USING IV ACCESS Allergies Allergy/AdvReac Type Severity Reaction Status Date / Time No Known Allergies Allergy Verified 10/13/17 12:39 Home Medications Medication Instructions Recorded Confirmed Type Eliquis BID 10/13/17 History amiodarone DAILY 10/13/17 History gabapentin 1,500 mg PO BID 10/13/17 10/13/17 History hydrochlorothiazide 1 tab DAILY 10/13/17 10/13/17 History lisinopril DAILY 10/13/17 History metformin 500 mg PO DAILY 10/13/17 10/13/17 History tramadol 100 mg BID 10/13/17 10/13/17 History Exam Vital signs: Vital Signs 10/13/17 12:39 10/13/17 12:44 10/13/17 13:03 Temperature 98.7 F Pulse Rate 76 78 76 Respiratory Rate 18 18 Blood Pressure 170/89 H 165/88 H Pulse Oximetry 98 96 10/13/17 15:00 10/13/17 15:06 Temperature Pulse Rate 76 Respiratory Rate 16 Blood Pressure 190/102 H Pulse Oximetry 97 97 Intake & Output 10/12/17 10/13/17 10/13/17 18:59 06:59 18:59 Weight 111 kg - Constitutional no acute distress - Routine HEENT Exam Eye: Present: PERRL - Routine Neck Exam Present: supple, full ROM - Routine Respiratory Exam Present: CTA bilaterally - Routine Cardiovascular Exam Present: RRR - Routine Abdominal Exam Present: soft - Routine Extremities Exam Comments: no pedal edema. - Routine Neurological Exam Present: alert, oriented X3 mild left arm weakness. Results - Labs CBC & Chem 7: 10/13/17 12:40 Labs: BMP 10/13/17 12:40 Sodium 139 Potassium 3.6 Chloride 103 Carbon Dioxide 27.2 BUN 16 Creatinine 1.30 Calcium 8.7 Cardiac Enzymes 10/13/17 Range/Units 12:40 Total Creatine Kinase 208 (39-308) U/L CK-MB (CK-2) 1.9 (0.5-3.6) ng/mL Troponin I Less than 0.02 L (0.02-0.05) ng/mL Liver Function 10/13/17 Range/Units 12:40 Total Bilirubin 0.5 (0.2-1.0) mg/dL AST 24 (15-37) U/L ALT 28 (12-78) U/L Alkaline Phosphatase 57 (45-117) U/L Albumin 4.2 (3.4-5.0) g/dL Urine 10/13/17 Range/Units 15:00 Urine Color Yellow (Yellw/Straw) Urine Clarity Clear (Clear) Urine pH 5.5 (5.0-8.5) Ur Specific [place] 1.025 (1.002-1.035) Urine Protein Negative (Neg-Trace) mg/dL Urine Glucose (UA) 250 H (Negative) mg/dL - Imaging Impressions Head CT 10/13/17 12:51 CONCLUSION: 1. Negative for an acute process. Head CTA 10/13/17 12:51 CONCLUSION: 1. Negative for major branch vessel occlusion. Neck CTA 10/13/17 12:51 CONCLUSION: 1. Unremarkable exam. Chest X-Ray 10/13/17 12:52 CONCLUSION: Mild prominence cardiac silhouette otherwise negative Caprini VTE Risk Assessment Caprini VTE Risk Assessment: Moderate/High Risk (score >= 2) Caprini Risk Assessment Model: Point Value = 1 Point Value = 2 Point Value = 3 Point Value = 5 Age 41-60 Minor surgery BMI > 25 kg/m2 Swollen legs Varicose veins or History of unexplained or recurrent spontaneous Oral contraceptives or hormone replacement Sepsis (< 1 month) Serious lung disease, including pneumonia (< 1 month) Abnormal pulmonary function Acute myocardial infarction Congestive heart failure (< 1 month) History of inflammatory bowel disease Medical patient at bed rest Age 61-74 Arthroscopic surgery Major open surgery (> 45 min) Laparoscopic surgery (> 45 min) Malignancy Confined to bed (> 72 hours) Immobilizing plaster cast Central venous access Age >= 75 History of VTE Family history of VTE Factor V Leiden Prothrombin [id number] Lupus anticoagulant Anticardiolipin antibodies Elevated serum homocysteine Heparin-induced thrombocytopenia Other congenital or acquired thrombophilia Stroke (< 1 month) Elective arthroplasty Hip, pelvis, or leg fracture Acute spinal cord injury (< 1 month) Prophylaxis Regimen: Total Risk Factor Score Risk Level Prophylaxis Regimen 0-1 Low Early ambulation 2 Moderate Order ONE of the following: *Sequential Compression Device (SCD) *Heparin 5000 units SQ BID 3-4 Higher Order ONE of the following medications: *Heparin 5000 units SQ TID *Enoxaparin/Lovenox 40 mg SQ daily (WT < 150 kg, CrCl > 30 mL/min) *Enoxaparin/Lovenox 30 mg SQ daily (WT < 150 kg, CrCl > 10-29 mL/min) *Enoxaparin/Lovenox 30 mg SQ BID (WT < 150 kg, CrCl > 30 mL/min) AND/OR *Sequential Compression Device (SCD) 5 or more Highest Order ONE of the following medications: *Heparin 5000 units SQ TID (Preferred with Epidurals) *Enoxaparin/Lovenox 40 mg SQ daily (WT < 150 kg, CrCl > 30 mL/min) *Enoxaparin/Lovenox 30 mg SQ daily (WT < 150 kg, CrCl > 10-29 mL/min) *Enoxaparin/Lovenox 30 mg SQ BID (WT < 150 kg, CrCl > 30 mL/min) AND *Sequential Compression Device (SCD) Assessment and Plan - Assessment (1) CVA (cerebral vascular accident) Code(s): I63.9 - Cerebral infarction, unspecified Status: Acute Plan: neuro-checks- will obtain MRI connie, echo and lipid panel- will consult neurology -had his eliquis today. (2) Hypertension Code(s): I10 - Essential (primary) hypertension Status: Chronic Plan: hold home meds- permissive hypertension till MRI brain resulted. (3) A-fib Code(s): I48.91 - Unspecified atrial fibrillation Status: Chronic Plan: will verify and resume Amiodarone and Eliquis. (4) Diabetes mellitus Code(s): E11.9 - Type 2 diabetes mellitus without complications Status: Acute Plan: start on accu-check with SSI. - Plan Discussed Condition With: ER physician and the patient. (4) Diabetes mellitus Qualifiers: Diabetes mellitus type: type 2
[2017-10-13] MEDS ORDERED: Dextrose 50% in Water 50 ML Vial IV.PUSH PRN (16:16)
--- NOTE | 2017-10-13 17:43 | MB ---
cc: Mini De La Cruz MD DATE: 10/13/2017 DATE OF : 1965 REASON FOR CONSULTATION: Stroke. HISTORY: A pleasant 52-year-old man with a history of left-sided weakness, numbness. He states he woke up with this. He thought his hand had fallen asleep, but it continued, hence he came to the ER for evaluation. 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 He had a significant history of diabetes. He states it is pretty well controlled. History of paroxysmal atrial fibrillation, had been on warfarin in the past, but then changed to Eliquis. Currently, denies any significant numbness or tingling, but does still feel left hand being weaker than the right. PAST MEDICAL HISTORY: He also has a history of hernia that has been repaired in the past with mesh, history of hypertension, neuropathy of the lower extremities and history of testicular cancer in the past. PAST SURGICAL HISTORY: Hernia repair with mesh. SOCIAL HISTORY: Does not smoke, but he chews tobacco. No significant alcohol abuse. PHYSICAL EXAMINATION: VITAL SIGNS: Temperature is 98.7, pulse 77, respiratory rate 16, blood pressure 155/94, saturating at 98 percent on room air. NECK: Supple. No appreciable bruits. HEART: Regular currently. LUNGS: Clear. NEUROLOGICAL EXAMINATION: He is awake and alert. He is oriented and fluent. Pupils reactive. Visual harkins are full. There is mildly decreased left nasolabial fold with a mild abnormality of the tongue, pointing to the left. Facial sensations are normal. There is no drift in the upper or lower extremities, but his legal process specialist is weaker on the left compared to the right. Proximally, he seems intact. Light touch and temperature seem intact in both arms. He states he has trouble with temperature from the knees down bilaterally, has a history of neuropathy. Reflexes are 1+. Toes are silent at this time. Cerebellar is intact, but is a little slower on the left, but no dysmetria. Gait is withheld. LABORATORY DATA: Reviewed. INR is 1, PTT 26.7. PT 10.5. GFR is 58, glucose is 115. Troponin less than 0.02. Urine glucose is 250. IMAGING: CT of the brain did not show anything acute. CTA of the carotids: No occlusion or stenosis. CTA of the [place]: No major branch occlusion or aneurysm or stenosis. IMPRESSION: Left-sided weakness, likely consistent with a stroke. He states he does take his Eliquis twice a day as directed. RECOMMENDATIONS: I would recommend an MRI of the brain. At this point in time, I would add a baby aspirin to his Eliquis. Certainly consideration would be changing him back to warfarin if there is no contraindication. He is already on amiodarone; we will continue with that. Watch his heart rate. Permissible hypertension today. Tomorrow normalize his blood pressure. Continue the Eliquis and sequential compression devices for DVT prophylaxis as well. Accu-Cheks, check a hemoglobin A1c and supplemental insulin if needed. Maintain him on telemetry. Watch him for any RVR. PT, OT, speech therapy evaluation. MD BLAIRE Fair/FARIDA , 05:12 PM , 05:42 PM
[2017-10-13 18:20] LABS: Hematocrit 47.8 % (39.0-51.0); Hemoglobin 15.9 gm/dL (13.0-17.0); Mean Corpuscular HGB Conc 33.3 % (32.0-36.0); Mean Corpuscular Volume 89.8 fL (80.0-100.0); Mean Platelet Volume 7.6 fL (7.0-11.0); Platelet Count 281 th/mm3 (150-450); Red Blood Count 5.32 mil/mm3 (4.50-5.90); Red Cell Distribution Width 13.1 % (11.6-17.2)
[2017-10-13] MEDS: Insulin NovoLOG Aspart Correctional Sugar Inj SQ SCH ×2 (19:29→22:28)
[2017-10-13] MEDS: Sod Chloride 0.9% Inj 1,000 ML IV.CONT SCH (19:30)
--- NOTE | 2017-10-13 20:12 | MR ---
EXAM DATE: 10/13/2017 7:22 PM EDT AGE/SEX: 52 years / Male INDICATIONS: Left sided weakness. CLINICAL DATA: This is the patient's initial encounter. Patient reports that signs and symptoms have been present for 1 day and indicates a pain score of 0/10. MEDICAL/SURGICAL HISTORY: Carcinoma, testicular. Diabetes mellitus type II. Hypertension. Umb ilical hernia repair. Testicle removed. COMPARISON: [facility], CT HEAD W/O CONTRAST, 10/13/2017. . TECHNIQUE: Multiplanar, multisequence examination of the brain was performed without contrast. FINDINGS: Cerebrum: The ventricles are normal for age. No evidence of midline shift, mass lesion, hemorrhage or acute infarction. No extraaxial fluid collections are seen. The pituitary gland and suprasellar cistern are normal in configuration. White Matter: There are a few small punctate areas of focal signal abnormality within the cerebral w bhavesh matter. Posterior Fossa: The cerebellum and brainstem are intact. The 4th ventricle is midline. The cerebel lopontine angle is unremarkable. The cerebellar tonsils are normal in position. Diffusion Imaging: No focal areas of restricted diffusion are seen. No evidence of acute infarction . Extracranial: The visualized portions of the orbits and paranasal sinuses are unremarkable. CONCLUSION: 1. Scattered minimal punctate areas of signal abnormality within the cerebral white matter represent ing minimal focal areas of demyelination. These are nonspecific. 2. No areas of mass effect or hemorrhage are seen. An acute infarct is not seen. Electronically signed by: Alex Mohan MD 10/13/2017 8:11 PM EDT
[2017-10-13] MEDS: Gabapentin 400 MG Capsule PO SCH (22:06)
[2017-10-14] MEDS: Sod Chloride 0.9% Inj 1,000 ML IV.CONT SCH ×2 (04:26→14:25)
--- NOTE | 2017-10-14 07:57 | P.PN ---
Subjective Interval history: resting comfortably. weakness of the left arm has much improved. no other complaints. Physical Exam Vital signs: Vital Signs 10/13/17 12:39 10/13/17 12:44 10/13/17 13:03 Temperature 98.7 F Pulse Rate 76 78 76 Respiratory Rate 18 18 Blood Pressure 170/89 H 165/88 H Pulse Oximetry 98 96 10/13/17 15:00 10/13/17 15:06 10/13/17 16:13 Temperature Pulse Rate 76 77 Respiratory Rate 16 16 Blood Pressure 190/102 H 204/98 H Pulse Oximetry 97 97 98 10/13/17 16:55 10/13/17 18:00 10/13/17 18:21 Temperature 98.0 F Pulse Rate 77 66 66 Respiratory Rate 16 17 Blood Pressure 155/94 H 157/84 H Pulse Oximetry 98 97 10/13/17 20:00 10/13/17 20:38 10/14/17 00:00 Temperature 97.9 F 97.5 F L Pulse Rate 65 60 Respiratory Rate 20 Blood Pressure 144/97 H 140/85 Pulse Oximetry 96 96 96 10/14/17 04:00 Temperature 96.4 F L Pulse Rate 63 Respiratory Rate 20 Blood Pressure 125/80 Pulse Oximetry 96 Intake & Output 10/13/17 10/14/17 10/14/17 18:59 06:59 18:59 Intake Total 779 / 779 1000 / 1000 Output Total 900 / 900 480 / 480 Balance -121 / -121 520 / 520 Weight 115.666 kg 111 kg Intake: IV 779 / 779 1000 / 1000 NS Inj 1,000 ML @ 100 mls/hr IV 779 / 779 1000 / 1000 .CONT .Q10H JASON Rx#:[id number] Output: Urine 900 / 900 480 / 480 Other: # Voids 2 2 Date of Last Bowel Movement 10/11/17 Weight On Admission 115.666 kg - Constitutional no acute distress - Routine HEENT Exam Eye: Present: PERRL - Routine Neck Exam Present: supple, full ROM - Routine Respiratory Exam Present: CTA bilaterally - Routine Cardiovascular Exam Present: RRR - Routine Abdominal Exam Present: soft - Routine Extremities Exam Comments: no pedal edema. - Routine Neurological Exam Present: alert, oriented X3 Results - Labs CBC & Chem 7: 10/13/17 18:00 10/13/17 12:40 Laboratory Results - last 24 hr 10/13/17 10/13/17 10/13/17 12:27 12:40 12:40 WBC RBC Hgb Hct MCV MCH MCHC RDW Plt Count MPV PT 10.5 INR 1.0 APTT 26.7 Sodium 139 Potassium 3.6 Chloride 103 Carbon Dioxide 27.2 Anion Gap 9 BUN 16 Creatinine 1.30 Estimated GFR 58 L POC Glucose 137 H Random Glucose 115 H Calcium 8.7 Total Bilirubin 0.5 AST 24 ALT 28 Alkaline Phosphatase 57 Total Creatine Kinase CK-MB (CK-2) Troponin I Total Protein 7.9 Albumin 4.2 Urine Color Urine Clarity Urine pH Ur Specific [place] Urine Protein Urine Glucose (UA) Urine Ketones Urine Occult Blood Urine Nitrate Urine Bilirubin Urine Urobilinogen Ur Leukocyte Esterase Urine WBC Hyaline Casts Micro UA Comment Urine Culture Comments Blood Type Blood Type Recheck Antibody Screen 10/13/17 10/13/17 10/13/17 12:40 12:40 15:00 WBC RBC Hgb Hct MCV MCH MCHC RDW Plt Count MPV PT INR APTT Sodium Potassium Chloride Carbon Dioxide Anion Gap BUN Creatinine Estimated GFR POC Glucose Random Glucose Calcium Total Bilirubin AST ALT Alkaline Phosphatase Total Creatine Kinase 208 CK-MB (CK-2) 1.9 Troponin I Less than 0.02 L Total Protein Albumin Urine Color Yellow Urine Clarity Clear Urine pH 5.5 Ur Specific [place] 1.025 Urine Protein Negative Urine Glucose (UA) 250 H Urine Ketones Negative Urine Occult Blood Negative Urine Nitrate Negative Urine Bilirubin Negative Urine Urobilinogen 0.2 Ur Leukocyte Esterase Negative Urine WBC 0-5 Hyaline Casts 4-10 H Micro UA Comment Culture not ind Urine Culture Comments Culture not ind Blood Type O Negative Blood Type Recheck Required Antibody Screen Negative 10/13/17 10/13/17 10/13/17 18:00 19:28 20:59 WBC 8.0 RBC 5.32 Hgb 15.9 Hct 47.8 MCV 89.8 MCH 30.0 MCHC 33.3 RDW 13.1 Plt Count 281 MPV 7.6 PT INR APTT Sodium Potassium Chloride Carbon Dioxide Anion Gap BUN Creatinine Estimated GFR POC Glucose 91 89 Random Glucose Calcium Total Bilirubin AST ALT Alkaline Phosphatase Total Creatine Kinase CK-MB (CK-2) Troponin I Total Protein Albumin Urine Color Urine Clarity Urine pH Ur Specific [place] Urine Protein Urine Glucose (UA) Urine Ketones Urine Occult Blood Urine Nitrate Urine Bilirubin Urine Urobilinogen Ur Leukocyte Esterase Urine WBC Hyaline Casts Micro UA Comment Urine Culture Comments Blood Type Blood Type Recheck Antibody Screen - Imaging Impressions Head MRI 10/13/17 00:00 CONCLUSION: 1. Scattered minimal punctate areas of signal abnormality within the cerebral white matter representing minimal focal areas of demyelination. These are nonspecific. 2. No areas of mass effect or hemorrhage are seen. An acute infarct is not seen. Head CT 10/13/17 12:51 CONCLUSION: 1. Negative for an acute process. Head CTA 10/13/17 12:51 CONCLUSION: 1. Negative for major branch vessel occlusion. Neck CTA 10/13/17 12:51 CONCLUSION: 1. Unremarkable exam. Chest X-Ray 10/13/17 12:52 CONCLUSION: Mild prominence cardiac silhouette otherwise negative Assessment and Plan - Assessment (1) CVA (cerebral vascular accident) Code(s): I63.9 - Cerebral infarction, unspecified Status: Acute Plan: neurology consult appreciated. continue eliquis- will consider adding aspirin- echo pending. (2) Hypertension Code(s): I10 - Essential (primary) hypertension Status: Chronic Plan: resume home meds soon. (3) A-fib Code(s): I48.91 - Unspecified atrial fibrillation Status: Chronic Plan: continue Amiodarone and Eliquis. (4) Diabetes mellitus Code(s): E11.9 - Type 2 diabetes mellitus without complications Status: Acute Plan: started on accu-check with SSI. - Plan Discharge Planning: likely today if echo is normal- (4) Diabetes mellitus Qualifiers: Diabetes mellitus type: type 2
[2017-10-14] MEDS: Amiodarone 200 MG Tablet PO SCH (08:29)
[2017-10-14] MEDS: Gabapentin 400 MG Capsule PO SCH ×2 (08:29→20:29)
[2017-10-14] MEDS: Insulin NovoLOG Aspart Correctional Sugar Inj SQ SCH ×4 (08:30→22:27)
[2017-10-14] MEDS: clonazePAM 0.5 MG Tablet PO PRN ×2 (12:47→20:34)
[2017-10-14 12:52] LABS: Chol/HDL Ratio 3.46 Ratio; HDL Cholesterol 49.7 mg/dL (40.0-60.0)
--- NOTE | 2017-10-14 16:45 | ECG ---
Date Performed: 10/13/2017 Time Performed: 12:31:50 PTAGE: 52 years EKG: Sinus rhythm POSSIBLE INFERIOR MYOCARDIAL INFARCTION BORDERLINE ECG NO PREVIOUS TRACING DOCTOR: Annie Batista Interpretating Date/Time 10/14/2017 16:40:47
--- NOTE | 2017-10-14 20:59 | ECHRPT ---
Indication: CVA/TIA CONCLUSIONS Normal LV size and function. Mild mitral valve regurgitation. The pulmonary valve is not well visualized. The inferior vena cava is mildly dilated. BP: / HR: Rhythm: Technical Quality: FINDINGS LEFT VENTRICLE Normal left ventricular size and wall thickness. The left ventricular systolic function is normal wi th an estimated ejection fraction in the range of 60-65%. Left ventricular diastolic function parameters a re normal. RIGHT VENTRICLE Normal right ventricular size and systolic function. LEFT ATRIUM The left atrial size is normal. RIGHT ATRIUM The right atrial size is normal. ATRIAL SEPTUM Normal atrial septal thickness without atrial level shunting by limited color doppler interrogation. AORTA The aortic root and proximal ascending aorta are normal in size on limited imaging. MITRAL VALVE Structurally normal mitral valve. Mild mitral valve regurgitation. AORTIC VALVE Trileaflet aortic valve. No aortic valve stenosis or regurgitation. TRICUSPID VALVE Structurally normal tricuspid valve. No tricuspid valve stenosis or regurgitation. PULMONARY VALVE The pulmonary valve is not well visualized. VESSELS The inferior vena cava is mildly dilated. PERICARDIUM No pericardial effusion. Nathaniel Saravia MD (Electronically Signed) Final Date:14 October 2017 20:58
[2017-10-15] MEDS: Sod Chloride 0.9% Inj 1,000 ML IV.CONT SCH (00:19)
[2017-10-15] MEDS: clonazePAM 0.5 MG Tablet PO PRN (06:46)
--- NOTE | 2017-10-15 07:47 | P.PN ---
Subjective Interval history: resting comfortably with no acute distress. has some tingling of the left hand- otherwise no other new complaints. BP trend noted. Physical Exam Vital signs: Vital Signs 10/14/17 08:00 10/14/17 08:01 10/14/17 09:30 Temperature 97.7 F Pulse Rate 62 65 Respiratory Rate 17 Blood Pressure 147/79 H Pulse Oximetry 96 95 10/14/17 12:00 10/14/17 16:00 10/14/17 20:00 Temperature 97.7 F 97.7 F 98.6 F Pulse Rate 75 76 61 Respiratory Rate 17 16 20 Blood Pressure 151/75 H 152/74 H 159/93 H Pulse Oximetry 95 95 96 10/14/17 20:37 10/14/17 23:56 10/15/17 04:00 Temperature 97.3 F L 96 F L Pulse Rate 65 60 Respiratory Rate 20 20 Blood Pressure 140/85 113/71 Pulse Oximetry 97 97 97 Intake & Output 10/14/17 10/15/17 10/15/17 18:59 06:59 18:59 Intake Total 1959 / 1959 1000 / 1000 Balance 1959 / 1959 1000 / 1000 Intake: IV 1000 / 1000 1000 / 1000 NS Inj 1,000 ML @ 100 mls/hr IV 1000 / 1000 1000 / 1000 .CONT .Q10H JASON Rx#:[id number] Oral 960 / 960 Other: # Voids 5 # Bowel Movements 1 - Constitutional no acute distress - Routine Neck Exam Present: supple, full ROM - Routine Cardiovascular Exam Present: RRR - Routine Abdominal Exam Present: soft - Routine Extremities Exam Comments: no pedal edema. - Routine Neurological Exam Present: alert, oriented X3, moving all extremities Results - Labs CBC & Chem 7: 10/13/17 18:00 10/13/17 12:40 Laboratory Results - last 24 hr 10/14/17 10/14/17 10/14/17 04:25 08:25 11:21 POC Glucose 133 H 152 H Triglycerides 283 H Cholesterol 172 LDL Cholesterol, Calc 66 HDL Cholesterol 49.7 Cholesterol/HDL Ratio 3.46 10/14/17 10/14/17 10/15/17 16:55 20:28 07:34 POC Glucose 152 H 105 99 Triglycerides Cholesterol LDL Cholesterol, Calc HDL Cholesterol Cholesterol/HDL Ratio Assessment and Plan - Assessment (1) CVA (cerebral vascular accident) Code(s): I63.9 - Cerebral infarction, unspecified Status: Acute Plan: neurology consult appreciated. continue eliquis- added aspirin- echo with LV normal size and EF 60%. (2) Hypertension Code(s): I10 - Essential (primary) hypertension Status: Chronic Plan: resume home meds. (3) A-fib Code(s): I48.91 - Unspecified atrial fibrillation Status: Chronic Plan: continue Amiodarone and Eliquis. (4) Diabetes mellitus Code(s): E11.9 - Type 2 diabetes mellitus without complications Status: Acute Plan: started on accu-check with SSI. - Plan Discharge Planning: later today if BP stable. f/u; pcp and neurology. see med list. d/w the patient and previously with . (4) Diabetes mellitus Qualifiers: Diabetes mellitus type: type 2
--- NOTE | 2017-10-15 07:52 | P.DS ---
Date of admission: 10/13/17 15:48 Primary care physician: No Primary Care Physician Brief History from admission: patient is a 52 y/o male with history of hypertension, diabetes mellitus and a- fib. who presented to ER with left arm weakness. he says that he was at his usual state of health till this morning when he started to have left arm weakness. he says that his left arm felt numb.this lasted the whole day. he had mild headache but with no dizziness, slurred speech, chest pain or sob. DS: Diagnosis - Discharge Diagnosis (1) CVA (cerebral vascular accident) Status: Acute (2) Hypertension Status: Chronic (3) A-fib Status: Chronic (4) Diabetes mellitus Status: Acute DS: Medications - Discharge Medications Prescriptions: aspirin [Aspirin Childrens] 81 mg PO DAILY 30 Days #30 tab DS: Summary Hospital Course: patient was admitted TIA vs CVA. neurological w/u was negative. he was seen by neurology and aspirin was added to his regimen. he was cleared by neurology for discharge. - Time Spent with Patient Total time spent providing and/or coordinating discharge services: - Quality: VTE Deep Vein Thrombosis/Pulmonary Embolism Present on Admission: No Exam Vital signs: Vital Signs 10/14/17 08:00 10/14/17 08:01 10/14/17 09:30 Temperature 97.7 F Pulse Rate 62 65 Respiratory Rate 17 Blood Pressure 147/79 H Pulse Oximetry 96 95 10/14/17 12:00 10/14/17 16:00 10/14/17 20:00 Temperature 97.7 F 97.7 F 98.6 F Pulse Rate 75 76 61 Respiratory Rate 17 16 20 Blood Pressure 151/75 H 152/74 H 159/93 H Pulse Oximetry 95 95 96 10/14/17 20:37 10/14/17 23:56 10/15/17 04:00 Temperature 97.3 F L 96 F L Pulse Rate 65 60 Respiratory Rate 20 20 Blood Pressure 140/85 113/71 Pulse Oximetry 97 97 97 Intake & Output 10/14/17 10/15/17 10/15/17 18:59 06:59 18:59 Intake Total 1959 1000 / 1000 Balance 1959 1000 / 1000 Intake: IV 1000 / 1000 1000 / 1000 NS Inj 1,000 ML @ 100 mls/hr IV 1000 / 1000 1000 / 1000 .CONT .Q10H JASON Rx#:[id number] Oral 960 / 960 Other: # Voids 5 # Bowel Movements 1 Results Procedures completed during hospitalization: none. Labs on day of discharge: Labs from last 24 hours 10/15/17 10/14/17 10/14/17 07:34 20:28 16:55 POC Glucose 99 105 152 H Triglycerides Cholesterol LDL Cholesterol, Calc HDL Cholesterol Cholesterol/HDL Ratio 10/14/17 10/14/17 10/14/17 11:21 08:25 04:25 POC Glucose 152 H 133 H Triglycerides 283 H Cholesterol 172 LDL Cholesterol, Calc 66 HDL Cholesterol 49.7 Cholesterol/HDL Ratio 3.46 - Impressions ITS Impressions Head MRI 10/13/17 00:00 CONCLUSION: 1. Scattered minimal punctate areas of signal abnormality within the cerebral white matter representing minimal focal areas of demyelination. These are nonspecific. 2. No areas of mass effect or hemorrhage are seen. An acute infarct is not seen. Head CT 10/13/17 12:51 CONCLUSION: 1. Negative for an acute process. Head CTA 10/13/17 12:51 CONCLUSION: 1. Negative for major branch vessel occlusion. Neck CTA 10/13/17 12:51 CONCLUSION: 1. Unremarkable exam. Chest X-Ray 10/13/17 12:52 CONCLUSION: Mild prominence cardiac silhouette otherwise negative Discharge Plan - Discharge Disposition Patient Disposition: 01 Discharge Home - Discharge Condition Condition: Stable - Discharge Order Discharge Orders: Discharge Order (Routine); Ordered 10/15/17 Ordered By: Scott Dasilva - Physicians Team Primary Care Provider: Primary Care Joseluis,Margret Attending Provider: Scott Dasilva Other Providers: Mini De La Cruz MD
[2017-10-15] MEDS ORDERED: Lisinopril 20 MG Tablet PO SCH (08:00)
[2017-10-15] MEDS: Amiodarone 200 MG Tablet PO SCH (08:54)
[2017-10-15] MEDS: Gabapentin 400 MG Capsule PO SCH (08:55)
[2017-10-15] MEDS: Insulin NovoLOG Aspart Correctional Sugar Inj SQ SCH (09:04)
== END 2017-10-15 10:48 | disposition home or self-care (01) ==
LOC: PHEDA 12:23 → PH3 12:23 → PHED 12:23 → PH3 17:03
PROVIDERS: ADMIT Internal Medicine; ATTEND Internal Medicine
DX: I48.0 Paroxysmal atrial fibrillation; I10 Essential (primary) hypertension; C62.90 Malignant neoplasm of unspecified testis, unspecified whether descended or undescended; E11.9 Type 2 diabetes mellitus without complications; Z79.84 Long term (current) use of oral hypoglycemic drugs; R20.0 Anesthesia of skin; F17.200 Nicotine dependence, unspecified, uncomplicated; Z85.47 Personal history of malignant neoplasm of testis; I34.0 Nonrheumatic mitral (valve) insufficiency; Z79.01 Long term (current) use of anticoagulants; G62.9 Polyneuropathy, unspecified; Z79.899 Other long term (current) drug therapy; I63.9 Cerebral infarction, unspecified; R29.810 Facial weakness; R53.1 Weakness